=== PATIENT | male | born 1950 | race Caucasian/White ===

== ENCOUNTER 2017-09-19 09:26 | Day surgery (SDC) | payer MEDICARE, OTHER ==
[2017-09-19] MEDS ORDERED: MIDAZOLAM 2 MG/2 ML INJ ONE (11:39)
[2017-09-19] MEDS ORDERED: PROPOFOL INJ 200 MG/20 ML VIAL IV ONE (11:39)
[2017-09-19] MEDS ORDERED: LIDOCAINE 2% INJ-PF (20 MG/ML) 10 ML AMPUL ONE (11:44)
[2017-09-19] MEDS ORDERED: ONDANSETRON HCL INJ/PF 4 MG/2 ML SDV ONE (11:44)
[2017-09-19] MEDS ORDERED: DIPHENHYDRAMINE HCL 50 MG/ML VIAL IV PRN (12:09)
[2017-09-19] MEDS ORDERED: PROMETHAZINE HCL INJ 25 MG/1 ML VIAL IV PRN (12:09)
[2017-09-19] MEDS ORDERED: FENTANYL CITRATE INJ/PF 100 MCG/2 ML AMPUL IV PRN ×3 (12:09)
[2017-09-19] MEDS ORDERED: SIMETHICONE 80 MG TAB.CHEW PO ONE (13:10)
[2017-09-19] MEDS ORDERED: ACETAMINOPHEN 325 MG TABLET ONE (13:34)
[2017-09-19 14:05] VITALS: BP 152/94
--- NOTE | 2017-09-19 19:23 | Operative Report ---
Operative Report DATE OF SURGERY: 09/19/17 Operative Report: The risks, benefits and alternatives of the procedure are explained to the patient in detail patient is taking to the OR and place in a left lateral decubital position time out is called Propofol sedation is administered A rectal exam is performed that did not reveal any masses, tears of fissures A colonoscope is inserted into the patient's rectum and is advanced to the cecum photodocumentation is obtained prep is reasonably good the patient has a long and redundant colon multiple diverticuli are seen scope is pulled back via the various segments of the colon 2 sigmoid polyps are noted they are removed via snare polypectomy there are 2 rectal polyps noted, these are similarly removed retroflexion is done PREOPERATIVE DIAGNOSIS: personal history of polyps POSTOPERATIVE DIAGNOSIS: 4 polyps as described. redundant colon. diverticulosis. internal hemorrhoids OPERATION: Colonoscopy with snare polypectomy SURGEON: DENNY RAHMAN ANESTHESIA: LMAC TISSUE REMOVED OR ALTERED: as noted above COMPLICATIONS: some retained air in patient's colon which was subsequently passed prior to discharge ESTIMATED BLOOD LOSS: none INTRAOPERATIVE FINDINGS: as described above PROCEDURE: patient tolerated the procedure well patient is discharged in good condition discharge date : 09/19/17 Discharge diet: regular Discharge activity: as tolerated follow up in 2-3 weeks wait on pathology patient is instructed to call the office or go to the ED if there are any other issues 3-5 year surveillance colonoscopy
== END 2017-09-19 14:20 | disposition home or self-care (01) ==
LOC: OROUT 09:26
PROVIDERS: ATTEND Internal Medicine Gastroenterology
DX: Z12.11 Encounter for screening for malignant neoplasm of colon (principal); K63.5 Polyp of colon; K62.1 Rectal polyp; K57.30 Diverticulosis of large intestine without perforation or abscess without bleeding; K64.8 Other hemorrhoids; Z86.010 Personal history of colon polyps
CPT/HCPCS: 45385; 82962; 88305 ×2; A9270 ×2; J2250; J2405; J2704; J3490